=== PATIENT | female | born 1935 ===

== ENCOUNTER 2023-05-22 18:15 | Day surgery (SDC) | payer OTHER, SELFPAY ==
[2023-05-22 17:55] VITALS: BP 118/70
--- NOTE | 2023-05-22 18:00 | ED.GENMED ---
History of Present Illness
General
Chief Complaint: Chest Pain
Source: patient and ambulance crew
Exam Limitations: none
Time Seen by Provider: 05/22/23 18:00
Travel History
Have you had any contact with someone who has COVID-19?: No
Do you have any symptoms of coronavirus? Fever > 100 degrees, chills, cough, shortness of breath, sore throat, loss of taste or smell, muscle aches, or headache?: No
History of Present Illness
History of Present Illness:
88-year-old female presents acutely with chest pain that began 2 hours prior to arrival. The pain was substernal in nature and felt like a pressure. She does report a little bit of shortness of breath. EMS transmitted abnormal EKG. STEMI alert
was called prior to the patient's arrival
Past History
Past History
ED Past Medical History: Arrthythmia (Atrial fibrillation) and Other (Pulmonary embolism, aortic stenosis, cardiomyopathy, renal insufficiency, spinal stenosis, hyperlipidemia)
Phy Exam
Physical Exam
Physical Exam:
CONSTITUTIONAL Patient alert and oriented to person, place and time. Well-appearing. Vital signs reviewed.
HEAD atraumatic, normocephalic.
EYES eyelids normal to inspection, Pupils equally round and reactive to light, Extraocular muscles intact, Conjunctiva normal, Sclera normal.
NECK normal range of motion, Trachea midline, no jugular venous distention.
RESPIRATORY CHEST No respiratory distress noted, Chest expansion equal, Bilateral breath sounds clear.
CARDIOVASCULAR regular rate and rhythm, Heart sounds normal.
ABDOMEN abdomen nontender, Bowel sounds normal. No distention.
BACK normal inspection, no obvious deformities
UPPER EXTREMITY range of motion normal, Motor strength normal, no cyanosis, no edema.
LOWER EXTREMITY range of motion normal, Motor strength normal, no cyanosis, no edema.
NEURO Speech normal, No focal motor deficits, Blu coma scale 15, Memory normal, Cranial Nerves intact to screening exam.
SKIN skin warm, dry, and normal in color.
PSYCHIATRIC patient oriented to person place and time, Normal affect.
Scores
Heart Score for Chest Pain Patients
STEMI patient?: Yes
Course
Orders/Labs/Results
Orders:
Orders
05/22/23 17:48
Electrocardiogram (*1) Urgent
Reason for Study: Chest Pain
Cardiac Monitoring- Treatment ONCE
EKG- Treatment ONCE
IV Insert/Care/Rem.- Treatment PRN
Cr Chest Portable [CR Chest Portable - 1 View] Urgent
Comment:
Reason For Exam: stemi
Reason Study Needs to be Portable: Patient Unstable
05/22/23 17:51
Complete Blood Count/With Diff Urgent
Comprehensive Metabolic Panel Urgent
NT-proBNP Urgent
Prothrombin Time Urgent
Troponin I Urgent
05/22/23 18:02
Fentanyl Citrate/Pf [Sublimaze] 100 mcg .ROUTE .STK-MED ONE
Midazolam HCl [Versed] 2 mg .ROUTE .STK-MED ONE
Verapamil Injectable [Isoptin/Verapamil Injection] 5 mg .ROUTE .STK-MED ONE
05/22/23 18:03
Heparin 10,000 units .ROUTE .STK-MED ONE
Heparin 1000 Units/500 ml [Heparin] 1,000 units in 500 ml .ROUTE .STK-MED
Heparin Sodium,Porcine/Ns/Pf [Heparin 2000 Units/1000 ml] 2,000 unit in 1,000 ml .ROUTE .STK-MED
Lidocaine HCl/Pf [Xylocaine-Mpf 1% Vial] 100 mg .ROUTE .STK-MED ONE
Nitroglycerin [Tridil] 1,500 mcg .ROUTE .STK-MED ONE
05/22/23 18:13
Add On- LAB Urgent
Tests Added?: bnp
05/22/23 18:19
Heparin 5,000 units .ROUTE .STK-MED ONE
Ticagrelor [Brilinta] 180 mg .ROUTE .STK-MED ONE
Abnormal Lab Results
05/22/23 05/22/2305/22/24
17:51 18:21 18:32
WBC 11.0 H 10^3/uL
(4.8-10.8)
RBC 3.91 L 10^6/uL
(4.20-5.40)
MCH 32.0 H pg
(27.0-31.0)
MCHC 32.6 L g/dL
(33.0-37.0)
Absolute Neuts (auto) 8.4 H 10^3/uL
(1.4-6.5)
Absolute Monos (auto) 0.9 H 10^3/uL
(0.1-0.6)
Neutrophils % 76.6 H %
(42.2-75.2)
Lymphocytes % 12.4 L %
(20.5-51.1)
PT 17.9 H Sec
(11.4-14.6)
Carbon Dioxide 21 L mmol/L
(22-30)
BUN 28 H mg/dl
(7-17)
Creatinine 1.3 H mg/dL
(0.6-1.0)
Glucose 195 H mg/dl
(70-99)
Troponin I 0.200 H* ng/ml
Total Protein 6.2 L g/dl
(6.3-8.2)
POC ACT Low Range 190 H Seconds 271 H Seconds
(116-155) (116-155)
05/22/23 17:51
05/22/23 17:51
Vital Signs
Initial and Last Documented VS:
Initial Vital Signs
Temp Pulse Resp BP Pulse Ox
98.0 F 57 18 118/70 90
05/22/23 17:55 05/22/23 17:55 05/22/23 17:55 05/22/23 17:55 05/22/23 17:55
Last Documented Vital Signs
Temp Pulse Resp BP Pulse Ox
98.0 F 57 18 118/70 90
05/22/23 17:55 05/22/23 17:55 05/22/23 17:55 05/22/23 17:55 05/22/23 17:55
MDM/Problems Addressed
MDM/Problems Addressed:
Acute STEMI
*Radiology
Radiology exam reviewed: all reviewed NAD by ED Provider
*Pulse Oximetry
Patient hypoxic: no
*EKG
Interpreted by ED Provider?: Yes
Interpretation: abnormal
Rate: normal
Rhythm: sinus
Ischemia: ST elevation
*Peanut Cleaner Interpretation
Rate: normal
Rhythm: sinus
*Critical Care Note
Total Time (30-74mins, 75-104mins- exclusive of procedures): 30 minutes
Data Reviewed
Source: patient and ambulance crew
Further Testing Considered But Not Given:
Consider chest CT but no clinical concern for dissection
Patient Management
Discussion with other providers: [facility] [employer] (Dr. Ismael Salgado)
Escalation/DeEscalation of care consider admission/obs:
88-year-old female who presents with acute ST elevation ND. Dr. Salgado at bedside and case was discussed with him. Aspirin, heparin and Brilinta given. Taken to the cardiac catheterization lab in stable condition
ED Attending Note
-
Portions of this chart may have been created with voice recognition software.� Occasional wrong word or��sound alike� substitutions may have occurred due to the inherent limitations of voice recognition software.
Discharge Plan
Departure
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
Admit to: labor delivery rn
Presentation/result/management discussed w/ accepting MD/DO: Cardiology
Discharge Problem:
ST elevation (STEMI) myocardial infarction
Interventions
Interventions:
*Risk Screen - Suicide Last Done: 05/22/23 17:55
*General Assessment Last Done: 05/22/23 17:55
*Neglect/Abuse Screening Last Done: 05/22/23 17:55
ED- Fall Risk Assessment Last Done: 05/22/23 18:11
*Nursing Disposition Last Done: 05/22/23 18:14
ED- Cardiac Assessment Last Done: 05/22/23 18:11
Discharge Date and Time
Discharge Date/Time: 05/22/23 18:15
[2023-05-22 18:12] LABS: % Basophils 0.7 % (0-2); % Eosinophils 1.5 % (0-6); % Immature Granulocytes 0.3 % (0-0.5); % Lymphocytes 12.4 % (20.5-51.1); % Monocytes 8.5 % (1.7-9.3); % Neutrophils 76.6 % (42.2-75.2); Absolute Basophils 0.1 10^3/uL (0-0.2); Absolute Eosinophils 0.2 10^3/uL (0-0.7); Absolute Lymphocytes 1.4 10^3/uL (1.2-3.4); Absolute Monocytes 0.9 10^3/uL (0.1-0.6); Absolute Neutrophils 8.4 10^3/uL (1.4-6.5); Hematocrit 38.3 % (37.0-47.0); Hemoglobin 12.5 g/dL (12.0-16.0); Mean Corp Hgb Conc. 32.6 g/dL (33.0-37.0); Mean Platelet Volume 10.4 fL (7.4-10.4); Nucleated Red Blood Cells % 0 %; Platelet Count 300 10^3/uL (130-400); Red Blood Cell Count 3.91 10^6/uL (4.20-5.40); Red Cell Dist. Width 13.4 % (11.5-14.5)
[2023-05-22 18:21] LABS: PT 17.9 Sec (11.4-14.6)
[2023-05-22 18:25] LABS: ACT-LR - POC 190 Seconds (116-155)
[2023-05-22 18:29] LABS: ALT (SGPT) 23 U/L (0-35); AST (SGOT) 34 U/L (14-36); Albumin 3.5 g/dl (3.5-5.0); Alkaline Phosphatase 110 U/L (38-126); Blood Urea Nitrogen 28 mg/dl (7-17); Calcium 9.6 mg/dl (8.4-10.2); Carbon Dioxide 21 mmol/L (22-30); Chloride 103 mmol/L (98-107); Glucose 195 mg/dl (70-99); Potassium 4.5 mmol/L (3.5-5.1); Sodium 136 mmol/L (135-145); Total Bilirubin 1.2 mg/dl (0.2-1.3); Total Protein 6.2 g/dl (6.3-8.2); eGFR 39.55
[2023-05-22 18:39] LABS: ACT-LR - POC 271 Seconds (116-155)
[2023-05-22 18:45] LABS: NT-proBNP 3130 pg/ml
--- NOTE | 2023-05-22 19:23 | W.PN.ANESINT ---
Anesthesia Intubation Note
- Intubation Note
Intubation Note:
Diagnosis: code 9/cardio-pulmonary arrest
Blade: mac 4
Tube Size: 8.0
Depth: 22cm
Side Taped:
Drugs Used: none
Grade View: 1
EtCO2 Present:
Atraumatic: yes
Attempts: 1
Insertion Start and Stop Time:0723-4206
SaO2 Pre: pulseless
SaO2 Post: pulseless
Glidescope Used:
Other Airway Adjustments:
Pre-Oxygenated:
Portable Chest X-Ray:
RSI:
Suctioned: yes
Bilateral Breath Sounds Confirmed: yes
Vent Settings:
Settings per _x__Attending Physician
--- NOTE | 2023-05-22 19:27 | ITS.CL.CATH ---
[employer] Licensing - Catheterization
Cardiac Catheterization
Procedure Report:
LEFT HEART CATH AND CORONARY INTERVENTION
Date of Procedure: May 22, 2023
Referring: [facility] emergency department
PROCEDURES:
1. Left heart catheterization with coronary and single-plane left ventriculography
2. Attempted revascularization of distally occluded LAD
3. Patient became pulseless with PEA requiring CPR and resuscitative efforts for 20 minutes. She was pronounced at 1709
INDICATION: This is an 88-year-old female who has been followed by Dr. Carrillo in the past for her cardiovascular issues. She was last seen by Dr. Carrillo in November 2020. Her past medical history notable for pulmonary emboli x 2, atrial
fibrillation, aortic stenosis, cardiomyopathy, renal insufficiency, spinal stenosis, and hyperlipidemia. [facility] into [facility] 2 [facility] ago and her daughter had noticed progressive worsening in lower extremity edema. Her last
echocardiogram was in October 2020 and her ejection fraction was estimated at 65 to 70% with a mean aortic valve gradient of 26 mmHg at that time. She is also noted to have 'moderate-severe elevation in RV systolic pressures'.
She presented to [facility] emergency department this evening approximately 2 hours after the onset of substernal chest pressure and the prehospital electrocardiogram was notable for ST elevation in leads V3-V6 as well as 2, 3, and aVF.
STEMI alert was activated.
ACCESS: No radial pulse. Access was obtained in the left common femoral artery using ultrasound guidance and micropuncture technique
HEMODYNAMICS (mmHg):
AO (s/d, m) : 129/59, 85
LV (s/d) : 176/22
LVEDP : 30
AORTIC VALVE:
Mean Gradient: 39 mmHg on pullback
VENTRICULOGRAPHY: Left ventriculography was performed in an MCQUEEN projection. The digital single-plane left ventricular ejection fraction is estimated at 35% with the base of the heart moving well. The mid to distal anterior wall, apex, and apical
inferior wall are severely hypokinetic.
CORONARY FINDINGS
Dominance: Right
LEFT MAIN: Normal
LEFT ANTERIOR DESCENDING: The LAD arises normally from the left main and runs in the anterior interventricular groove. The LAD supplies several small diagonal branches and becomes 100% occluded beyond a small third diagonal branch.
RAMUS: Small caliber vessel with minor irregularities
CIRCUMFLEX: The circumflex is a medium caliber nondominant vessel giving rise to a small OM1 and terminating in a medium caliber tortuous OM 2
RIGHT CORONARY: The right coronary artery is a dominant vessel with an eccentric calcified plaque in the proximal RCA and diffuse nonobstructive luminal irregularities noted in the mid RCA. The PDA and posterolateral branch are widely patent
ANGIOPLASTY PROCEDURE DETAIL: Upon review of the diagnostic catheterization films the decision was made to proceed with percutaneous revascularization of the 100% occluded mid to distal LAD. Intravenous heparin was administered and the ACT was
monitored during the procedure and maintained within therapeutic limits. The patient was on apixaban and took a dose this afternoon at approximately 2 PM. She states that she typically does not miss any of her medications. The origin of the left
main was cannulated with a 6 Tajik XB 3.5 guide and a BMW guidewire was advanced to the distal LAD. The BMW preferentially biased towards a terminal septal branch but I was able to redirect to the more distal LAD where the vessel became quite
tortuous. The tip of the BMW wire then was biased towards the terminal diagonal branch just proximal to the site of occlusion. A 2.0 x 12 mm balloon was advanced over the guidewire to provide additional backup support in order to facilitate
delivery of the wire to the apical LAD. As we are attempting to cross the wire to the distal LAD the patient developed PEA and CPR was initiated. She received a total of 4 mg of epinephrine, 1 mg of atropine, 2 Amps of sodium bicarbonate. She was
intubated by anesthesia. We did brief cardiac imaging with no sizable pericardial effusion noted. Ongoing resuscitative efforts were terminated after 20 minutes of CPR.
CONCLUSIONS
1. Evolving anterior apical myocardial infarction with occlusion of the distal LAD
2. Severe aortic stenosis
3. PCI complicated by PEA arrest. Resuscitative efforts were continued for 20 minutes and included 4 mg of epinephrine, a milligram of atropine, sodium bicarbonate and brief imaging of the cardiac silhouette for development of an effusion. No
obvious reversible causes were identified and additional resuscitative efforts were terminated
Copy to: Dr. Abdi Carrillo
--- NOTE | 2023-05-22 20:37 | W.PN.UPDATE ---
Addendum entered and electronically signed by Ismael Salgado MD 05/23/23 09:28:
Attending addendum: Time of 19:07 05/22/2023
Original Note:
Update Note
Progress Note Update
note:
88-year-old female who presented to [facility] approximately 2 hours after the onset of substernal chest pressure. Her prehospital electrocardiogram was notable for ST elevation in leads V3 through V6 and in the inferior leads, 2, 3, and
aVF. She was referred for emergent coronary angiography. She does have a history of aortic stenosis with her last echocardiogram 2-1/2 years ago with a mean aortic valve gradient of 26 mmHg. She has a history of pulmonary emboli on 2 occasions
with resultant moderate to severe pulmonary hypertension. She was referred for emergent coronary angiography and was found to have 100% occlusion of the mid to distal LAD. During attempts to pass a wire across the lesion the patient became
profoundly hypotensive with development of PEA. CPR was initiated and anesthesia was called for emergent intubation which proved difficult. The patient received multiple rounds of epinephrine (x 4) and atropine 0.5 mg (x 2) as well as sodium
bicarbonate. A brief subcostal echocardiogram was performed demonstrating cardiac standstill and no significant pericardial effusion. Ongoing resuscitative efforts were terminated after 20 minutes. The patient's daughter was present and I met
with her daughter and multiple granddaughter.
== END 2023-05-22 19:07 | disposition expired ==
LOC: CATH 18:15
PROVIDERS: ATTENDING PHYSICIAN Internal Medicine Interventional Cardiology; EMERGENCY PHYSICIAN Emergency Medicine
DX: I21.09 ST elevation (STEMI) myocardial infarction involving other coronary artery of anterior wall (principal); I25.10 Atherosclerotic heart disease of native coronary artery without angina pectoris; I42.9 Cardiomyopathy, unspecified; I48.0 Paroxysmal atrial fibrillation; Z86.711 Personal history of pulmonary embolism; I08.3 Combined rheumatic disorders of mitral, aortic and tricuspid valves; E78.5 Hyperlipidemia, unspecified; N28.9 Disorder of kidney and ureter, unspecified; M48.00 Spinal stenosis, site unspecified; R60.0 Localized edema; I46.2 Cardiac arrest due to underlying cardiac condition
CPT/HCPCS: 92950; 71045; 80053; 83880; 84484; 85025; 85347; 85610; 92941; 93005; 93458; 99285; C1725; C1769; C1887; C1894